=== PATIENT | male | born 1980 | race Caucasian/White ===

== ENCOUNTER 2020-01-30 09:13 | Emergency (ER) | payer SELFPAY ==
--- NOTE | 2020-01-30 09:30 | EDM.PDOC ---
ED HPI GENERAL MEDICAL PROBLEM - General Chief Complaint: Lower Extremity Injury/Pain Stated Complaint: ANKLE INJURY Time Seen by Provider: 01/30/20 09:20 Source of Information: Reports: Patient History Limitations: Reports: No Limitations - History of Present Illness INITIAL COMMENTS - FREE TEXT/NARRATIVE: 39-year-old male states injured his right knee after getting out of the metal loader patient has pain in the medial aspect of his knee and unable to bear weight at this time Onset: Today Location: Reports: Lower Extremity, Right Quality: Reports: Ache Severity: Moderate Improves with: Reports: None Worsens with: Reports: None Associated Symptoms: Reports: No Other Symptoms Right Knee Pain Score (Numeric/FACES): 8 - Related Data Allergies Allergy/AdvReac Type Severity Reaction Status Date / Time hydrocodone [From Vicodin] Allergy Itching Verified 01/30/20 09:25 oxycodone [From Percocet] Allergy Rash Verified 01/30/20 09:25 Home Meds: Home Meds Ibuprofen [Motrin] 600 mg PO Q6H PRN #21 tab 01/30/20 [Rx] Review of Systems - Review of Systems Review Of Systems: See Below Constitutional: Reports: No Symptoms Eyes: Reports: No Symptoms Ears: Reports: No Symptoms Nose: Reports: No Symptoms Mouth/Throat: Reports: No Symptoms Respiratory: Reports: No Symptoms Cardiovascular: Reports: No Symptoms GI/Abdominal: Reports: No Symptoms Genitourinary: Reports: No Symptoms Musculoskeletal: Reports: No Symptoms, Other (Has swelling to the right knee and pain) Skin: Reports: No Symptoms Neurological: Reports: No Symptoms Psychiatric: Reports: No Symptoms ED EXAM, GENERAL - Physical Exam Exam: See Below Exam Limited By: Altered Mental Status General Appearance: Alert, WD/WN, Mild Distress Nose: Normal Inspection, Normal Mucosa, No Blood Throat/Mouth: Normal Inspection, Normal Lips, Normal Teeth Head: Atraumatic, Normocephalic Neck: Normal Inspection, Supple, Non-Tender Respiratory/Chest: No Respiratory Distress Cardiovascular: Normal Peripheral Pulses (Male) Exam: Deferred Rectal (Males) Exam: Deferred Extremities: Normal Inspection, Limited Range of Motion, Other (The right knee on palpation decreased range of motion secondary to pain in the medial aspect. Unable to flex leg.). No: Normal Range of Motion Neurological: Alert, Oriented, CN II-XII Intact Psychiatric: Normal Affect, Normal Mood Skin Exam: Warm Lymphatic: No Adenopathy Course - Vital Signs Text/Narrative:: RI suggest possible subtotal tear of the meniscus. Will be discharged to follow -up with orthopedics with crutches and knee immobilizer. Take anti- inflammatories for pain Last Recorded V/S: Last Vital Signs Temp 97.6 F 01/30/20 09:19 Pulse 78 01/30/20 10:35 Resp 18 01/30/20 09:19 BP 103/60 01/30/20 10:35 Pulse Ox 95 01/30/20 10:35 - Orders/Labs/Meds Orders: Active Orders 24 hr Category Date Time Status DME for Discharge [COMM] Stat Oth 01/30/20 11:10 Ordered Departure - Departure Time of Disposition: 11:13 Disposition: Home, Self-Care 01 Condition: Good Clinical Impression: Meniscal injury Qualifiers: Encounter type: initial encounter Laterality: right Qualified Code(s): S83.8X1A - Sprain of other specified parts of right knee, initial encounter - Discharge Information Instructions: Crutch Use, Adult, [id number], Knee Sprain, Adult, [id number] , How to Use a Knee Immobilizer, [id number] Referrals: PCP,None [Primary Care Provider] - Forms: ED Department Discharge Additional Instructions: 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
--- NOTE | 2020-01-30 10:57 | MR ---
MRI right knee Technique: Proton fat suppressed axial; T1, proton and proton fat suppressed sagittal; proton and proton fat suppressed coronal images were obtained of the right knee. Comparison: No prior right knee imaging is available. Findings: Patellofemoral cartilage appears fairly well preserved. No joint effusion is seen. No popliteal cyst is identified. Increased signal is seen within the mid as well as posterior and anterior horns of the lateral meniscus. This appears to remain mostly intrameniscal, but this meniscus is abnormal enough to obscure subtle meniscus tear. Medial meniscus appears normal. Anterior and posterior cruciate ligaments are normal. Distal quadriceps tendon and patellar ligament appear normal. Soft tissue edema is noted anteriorly to the patella and patellar ligament. Lateral collateral and medial collateral ligaments are intact. Impression: 1. Diffusely abnormal lateral meniscus most likely degenerative in etiology. This meniscus is abnormal enough to obscure a subtle meniscal tear. 2. Subcutaneous edema anteriorly. 3. No additional abnormality is appreciated on MRI study of the right knee. Diagnostic code #3 This report was dictated in MDT
== END 2020-01-30 11:35 | disposition home or self-care (01) ==
LOC: MW.ED 09:13
DX: S83.8X1A Sprain of other specified parts of right knee, initial encounter (principal); Z79.899 Other long term (current) drug therapy; Z88.5 Allergy status to narcotic agent; X50.0XXA Overexertion from strenuous movement or load, initial encounter
CPT/HCPCS: 73721-26-RT; 73721-RT; 99282; 99283-25

== ENCOUNTER 2020-03-27 09:18 | Day surgery (SDC) | payer BC ==
[~2020-03-27 09:18] MED LIST: Lactated Ringers 1,000 ML IV SCH; Propofol 200 MG/20 ML SDV ONE; ceFAZolin 2 GM in Premix Bag 1 BAG IV SCH
[2020-03-27] MEDS ORDERED: fentaNYL 100 MCG/2 ML SDV ONE ×2 (09:19→11:40)
[2020-03-27] MEDS ORDERED: Midazolam 1 MG/ML 2 ML SDV ONE ×2 (09:19→10:04)
[2020-03-27] MEDS ORDERED: Lidocaine 2% 5 ML SDV ONE (09:20)
[2020-03-27] MEDS ORDERED: Glycopyrrolate 0.2 MG/ML SDV ONE (09:20)
[2020-03-27] MEDS ORDERED: Ketorolac 30 MG/ML SDV ONE (09:20)
[2020-03-27] MEDS ORDERED: Ondansetron 4 MG/2 ML SDV ONE (09:20)
[2020-03-27] MEDS ORDERED: Sodium Chloride 0.9% 20 ML ONE (10:02)
[2020-03-27] MEDS ORDERED: ceFAZolin 1 GM Vial ONE (10:02)
--- NOTE | 2020-03-27 10:07 | PCM.PREANE ---
Preanesthetic Assessment - Anesthesia/Transfusion/Family Hx Anesthesia History: Prior Anesthesia Without Reaction Family History of Anesthesia Reaction: No Transfusion History: No Prior Transfusion(s) Intubation History: Unknown - Review of Systems General: No Symptoms Pulmonary: No Symptoms Cardiovascular: No Symptoms Gastrointestinal: No Symptoms Neurological: No Symptoms Other: Reports: None - Physical Assessment Vital Signs: Last Vital Signs Temp 36.5 C 03/27/20 09:59 Pulse 86 03/27/20 09:59 Resp 16 03/27/20 09:59 BP 100/62 03/27/20 09:59 Pulse Ox 96 03/27/20 09:59 Height: 6 ft 1 in Weight: 104.326 kg ASA Class: 2 Mental Status: Alert & Oriented x3 Airway Class: Mallampati = 2 Dentition: Reports: Normal Dentition, Tibbie(s) (x1 upper front), Bridge (fixed rt. lower) Thyro-Mental Finger Breadths: 3 Mouth Opening Finger Breadths: 2 (small mouth) ROM/Head Extension: Full Lungs: Clear to Auscultation, Normal Respiratory Effort Cardiovascular: Regular Rate, Regular Rhythm - Allergies Allergies/Adverse Reactions: Allergies Allergy/AdvReac Type Severity Reaction Status Date / Time hydrocodone [From Vicodin] Allergy Itching Verified 03/27/20 09:56 oxycodone [From Percocet] Allergy Rash Verified 03/27/20 09:56 - Blood Blood Available: No - Anesthesia Plan Pre-Op Medication Ordered: None - Acknowledgements Anesthesia Type Planned: General Anesthesia Pt an Appropriate Candidate for the Planned Anesthesia: Yes Alternatives and Risks of Anesthesia Discussed w Pt/Guardian: Yes Pt/Guardian Understands and Agrees with Anesthesia Plan: Yes PreAnesthesia Questionnaire HEENT History: Reports: Other (See Below) Other HEENT History: impaired hearing R ear Cardiovascular History: Reports: None Respiratory History: Reports: None Gastrointestinal History: Reports: Hiatal Hernia Genitourinary History: Reports: Renal Calculus Musculoskeletal History: Reports: Back Pain, Chronic, Fracture, Other (See Below) (lateral meniscus tear rt. knee at present) Other Musculoskeletal History: R leg, L ankle. R wrist, bilateral ribs Neurological History: Reports: Concussion Psychiatric History: Reports: PTSD Endocrine/Metabolic History: Reports: Obesity/BMI 30+ (BMI 30.3) Hematologic History: Reports: None Immunologic History: Reports: None Oncologic (Cancer) History: Reports: None Dermatologic History: Reports: None - Infectious Disease History Infectious Disease History: Reports: Chicken Pox - Past Surgical History Head Surgeries/Procedures: Reports: None HEENT Surgical History: Reports: None Cardiovascular Surgical History: Reports: None Respiratory Surgical History: Reports: None GI Surgical History: Reports: Hernia, Abdominal, Christa Fundoplication Other GI Surgeries/Procedures: hx of umbilical hernia repair & hiatal hernia repair Male Surgical History: Reports: Vasectomy Endocrine Surgical History: Reports: None Neurological Surgical History: Reports: None Musculoskeletal Surgical History: Reports: None Oncologic Surgical History: Reports: None Dermatological Surgical History: Reports: Other (See Below) - SUBSTANCE USE Smoking Status *Q: Light Tobacco Smoker (occasional smoker) Tobacco Use Within Last Twelve Months: No Days Per Week of Alcohol Use: 7 Number of Drinks Per Day: 3 Total Drinks Per Week: 21 - HOME MEDS Home Medications: Home Meds Ibuprofen [Motrin] 600 mg PO Q6H PRN #21 tab 01/30/20 [Rx] - CURRENT (IN HOUSE) MEDS Current Meds: Current Medications Lactated Ringer's (Ringers, Lactated) 1,000 mls @ 100 mls/hr IV ASDIRECTED [facility] Last Admin: 03/27/20 09:55 Dose: 100 mls/hr Documented by: Cefazolin Sodium/Dextrose 2 gm (/ Premix) 50 mls @ 100 mls/hr IV ONCALL [facility] Discontinued Medications Fentanyl (Sublimaze) Confirm Administered Dose 100 mcg .ROUTE .STK-MED ONE Stop: 03/27/20 09:20 Glycopyrrolate (Robinul) Confirm Administered Dose 0.2 mg .ROUTE .STK-MED ONE Stop: 03/27/20 09:21 Ketorolac Tromethamine (Toradol) Confirm Administered Dose 30 mg .ROUTE .STK-MED ONE Stop: 03/27/20 09:21 Lidocaine (Xylocaine-Mpf 2%) Confirm Administered Dose 5 ml .ROUTE .STK-MED ONE Stop: 03/27/20 09:21 Midazolam HCl (Versed 1 Mg/Ml) Confirm Administered Dose 2 mg .ROUTE .STK-MED ONE Stop: 03/27/20 09:20 Ondansetron HCl (Zofran) Confirm Administered Dose 4 mg .ROUTE .STK-MED ONE Stop: 06/24/20 09:21 Propofol (Diprivan 20 Ml) Confirm Administered Dose 200 mg .ROUTE .[facility] ONE Stop: 03/27/20 09:19
[2020-03-27] MEDS ORDERED: fentaNYL 100 MCG/2 ML SDV IVPUSH PRN (10:21)
[2020-03-27] MEDS ORDERED: Acetaminophen 1,000 MG in Premix Bag 1 BAG IV PRN (10:21)
[2020-03-27] MEDS ORDERED: Bupivacaine 0.5%/EPINEPHrine 1:200,000 10 ML SDV ONE (11:31)
--- NOTE | 2020-03-27 12:10 | PCM.OPNOTE ---
- General Post-Op/Procedure Note Date of Surgery/Procedure: 03/27/20 Operative Procedure(s): right lateral and medial partial menisectomy Pre Op Diagnosis: right lateral meniscus tear Post-Op Diagnosis: right medial and lateral meniscus tear Primary Surgeon: Venkat VANN in mLs: 5 Complications: None Condition: Good
--- NOTE | 2020-03-27 12:34 | PCM.POSTAN ---
POST ANESTHESIA ASSESSMENT - MENTAL STATUS Mental Status: Alert, Oriented - VITAL SIGNS Vital Signs: Last Vital Signs Temp 36.1 C 03/27/20 12:08 Pulse 68 03/27/20 12:28 Resp 12 03/27/20 12:28 BP 129/89 03/27/20 12:28 Pulse Ox 100 03/27/20 12:28 - RESPIRATORY Respiratory Status: Respiratory Rate WNL, Airway Patent, O2 Saturation Stable - CARDIOVASCULAR CV Status: Pulse Rate WNL, Blood Pressure Stable - GASTROINTESTINAL GI Status: No Symptoms - PAIN Pain Score: 0 - POST OP HYDRATION Hydration Status: Adequate & Stable - OBSERVATIONS Free Text/Narrative:: No anesthesia problems
--- NOTE | 2020-03-27 12:52 | PCM48HPAN ---
Post Anesthesia Note - EVALUATION WITHIN 48HRS OF ANESTHETIC Vital Signs in Normal Range: Yes Patient Participated in Evaluation: Yes Respiratory Function Stable: Yes Airway Patent: Yes Cardiovascular Function Stable: Yes Hydration Status Stable: Yes Pain Control Satisfactory: Yes Nausea and Vomiting Control Satisfactory: Yes Mental Status Recovered: Yes Vital Signs: Last Vital Signs Temp 36.1 C 03/27/20 12:08 Pulse 68 03/27/20 12:28 Resp 12 03/27/20 12:28 BP 129/89 03/27/20 12:28 Pulse Ox 100 03/27/20 12:28 - COMMENTS/OBSERVATIONS Free Text/Narrative:: no anesthesia problems
--- NOTE | 2020-03-27 16:25 | OR ---
SURGEON: Venkat Morgan DATE OF PROCEDURE: 03/27/2020 PREOPERATIVE DIAGNOSIS: Right knee lateral meniscus tear. POSTOPERATIVE DIAGNOSIS: Right knee lateral and medial meniscus tear. PROCEDURE: Right knee arthroscopy with partial medial and lateral meniscectomy. PRIMARY SURGEON: Venkat Morgan DO ANESTHESIA: General endotracheal intubation. FLUID: Lactated Ringer's solution. ESTIMATED BLOOD LOSS: 5 mL. COMPLICATIONS: None. SPECIMEN: None. DISCHARGE DISPOSITION: Stable to PACU. HISTORY AND INDICATIONS FOR THE PROCEDURE: The patient was seen preoperatively in the clinic. He was treated nonoperatively with steroid injection, which did not help. Preoperative imaging confirmed the above-mentioned preoperative diagnosis. Risks and goals of the procedure were explained to the patient. Informed consent was obtained. DETAILS OF PROCEDURE: The patient was seen preoperatively by myself and the Anesthesia staff in the preoperative holding area where the operative site was marked. He was brought to the operative suite by Anesthesia staff where general anesthesia was administered. The left lower extremity was placed into a leg muse. The right lower extremity was placed into an arthroscopic knee muse. After placing a well-padded tourniquet, the right lower extremity was then prepped and draped in a sterile manner. Time-out was called identifying the correct patient, the correct procedure, the correct site, and that antibiotics had been given within appropriate period of time. The patient's right lower extremity was exsanguinated, tourniquet was raised to 250 mmHg. Under flexion, we then made our medial portal and then advanced with a trocar and camera. We inspected the suprapatellar pouch and patellofemoral compartment, which showed no evidence of arthritic changes. No plicae were seen in the medial or lateral gutters. The lateral compartment did show a posterior lateral meniscus tear. We did use the shaver and ablation unit to debride this, performing a partial lateral meniscectomy and then stabilized it with the ablation unit. I used the shaver to remove soft tissue medially and laterally for visualization. In the anterior medial portion of the medial meniscus was a small tear. This was again shaved and then stabilized with the ablation unit. The ACL was in good repair. There was no evidence of cartilage damage. We then, having accomplished our goals, removed our instruments from the knee. We then applied local anesthetic both subcutaneously and intra-articularly. We then closed with 3-0 nylon in horizontal mattress [id number] sutures followed by Betadine-soaked Adaptic, fluffs, and an Jed wrap. The tourniquet was let down after closure. The patient was then taken to his hospital bed and then taken to the PACU in stable condition. [id number] / MODL /[id number]
== END 2020-03-27 13:15 | disposition home or self-care (01) ==
LOC: MW.SDS 09:18
PROVIDERS: ATTEND Orthopaedic Surgery
DX: S83.281A Other tear of lateral meniscus, current injury, right knee, initial encounter (principal); S83.241A Other tear of medial meniscus, current injury, right knee, initial encounter; E66.9 Obesity, unspecified; F17.210 Nicotine dependence, cigarettes, uncomplicated; Z68.30 Body mass index [BMI] 30.0-30.9, adult; Z88.5 Allergy status to narcotic agent; Z88.8 Allergy status to other drugs, medicaments and biological substances; X58.XXXA Exposure to other specified factors, initial encounter
CPT/HCPCS: 29880; J0131; J0690; J1885; J2001; J2250; J2405; J2704; J3010; J3490; J7120

== ENCOUNTER 2020-09-09 16:40 | Emergency (ER) | payer BC ==
[2020-09-09] MEDS ORDERED: Aspirin 81 MG Tab.Chew PO ONE (16:42)
[2020-09-09] MEDS ORDERED: Sodium Chloride 0.9% 10 ML Syringe FLUSH PRN (16:42)
[2020-09-09] MEDS ORDERED: Sodium Chloride 0.9% 2.5 ML Syringe FLUSH PRN (16:42)
--- NOTE | 2020-09-09 16:49 | EDM.PDOC ---
ED HPI GENERAL MEDICAL PROBLEM - General Chief Complaint: Chest Pain Stated Complaint: CHEST PAIN Time Seen by Provider: 09/09/20 16:42 Source of Information: Reports: Patient History Limitations: Reports: No Limitations - History of Present Illness INITIAL COMMENTS - FREE TEXT/NARRATIVE: HISTORY AND PHYSICAL: History of present illness: Patient is a 40-year-old male who presents to the emergency room with complaints of left anterior chest pain that radiates into his left arm. Pain started approximately 1 hour prior to arrival. He states that he did feel "like I could pass out" but resolved without any syncopal event. He states nothing makes the pain better or worse. Patient denies any fever, chills, headache, change in vision, syncope or near syncope. Denies any back pain, shortness of breath or cough. Denies any neck pain or stiffness. Denies any abdominal pain, nausea, vomiting, diarrhea, constipation or dysuria. Has not noted any blood in urine or stool. Patient has been eating and drinking appropriately. No personal or family history of heart disease. He is a daily smoker over the past 20 years. Review of systems: As per history of present illness and below otherwise all systems reviewed and negative. Past medical history: As per history of present illness and as reviewed below otherwise noncontributory. Surgical history: As per history of present illness and as reviewed below otherwise noncontributory. Social history: See social history for further information Family history: As per history of present illness and as reviewed below otherwise noncontributory. Physical exam: General: Well developed and well nourished 40 year old male. Alert and orientated x 3. Nontoxic in appearance and in no acute distress. Vital signs are stable and have been reviewed by me. Nursing notes were reviewed. HEENT: Atraumatic, normocephalic, pupils equal and reactive bilaterally, negative for conjunctival pallor or scleral icterus, mucous membranes moist, trachea midline. No drooling or trismus noted. No meningeal signs. No hot potato voice noted. Lungs: Clear to auscultation, breath sounds equal bilaterally, chest nontender. Normal work of breathing, no accessory muscles used. Heart: S1S2, regular rate and rhythm without overt murmur Abdomen: Soft, nondistended, nontender. Negative for masses or hepatosplenomegaly. Negative for costovertebral tenderness. Skin: Intact, warm, dry. No lesions or rashes noted. Hematologic: No petechiae or purpra. Mucosa appropriate color and normal nail bed color and refill. Extremities: Atraumatic, moves all extremities per self without difficulty or deficits, negative for cords or calf pain. No LE edema noted. Strong distal pulses bilaterally, equal. Neurovascular unremarkable. Neuro: Awake, alert, oriented. Cranial nerves II through XII unremarkable. Cerebellum unremarkable. Motor and sensory unremarkable throughout. Exam nonfocal. Psychiatric: Mood and affect are appropriate. Normal thought process. Answering questions appropriately. Notes: Heart Score: Low. He is agreeable to labs and diagnostics. Will give aspirin and morphine. Initial troponin is unremarkable. Negative COVID-19 screening. Chest x-ray shows hyperinflation and increased interstitial markings which may represent mild pulmonary edema. No dense consolidation is appreciated. The patient's pain starting just an hour prior to arrival I will do a repeat troponin, patient was made aware and he is agreeable. He states "I would like to get home" and does feel somewhat improved. I have talked with the patient about today's findings, in addition to providing specific details for plan of care. Patient states he is pain-free and would like to be discharged to home. Reassessment at the time of disposition demons trates that the patient is in no acute distress. The patient is stable for discharge, counseling was provided and we discussed in great detail signs and symptoms that would prompt them to return to the Emergency Department. Medication, follow up and supportive care measures were reviewed and discussed. Voices understanding and is agreeable to plan of care. Denies any further questions or concerns at this time. Diagnostics: CBC, CMP, Troponin, EKG, CXR, COVID Therapeutics: Aspirin, Morphine 4mg Prescription: None Impression: Chest pain, unspecified Plan: 1. Today your HEART score was low and cardiac enzymes were within normal limits. You choose to not be admitted today, should your chest pain return, worsen, or new symptoms develop - PLEASE return to the ED for re-evaluation, we are always happy to see you. 2. Tylenol and/or Ibuprofen as needed for pain. 3. We encourage you to follow up with your primary care provider and/or head shipper for re-evaluation and further care/management. If your symptoms should worsen, new symptoms develop or any of the signs and symptoms we discussed should arise please return to the emergency room or call 911 (if needed). Definitive disposition and diagnosis as appropriate pending reevaluation and review of above. Chest Pain Score (Numeric/FACES): 4 - Related Data Allergies Allergy/AdvReac Type Severity Reaction Status Date / Time hydrocodone [From Vicodin] Allergy Itching Verified 09/09/20 16:47 oxycodone [From Percocet] Allergy Rash Verified 09/09/20 16:47 Home Meds: Home Meds Ibuprofen [Motrin] 600 mg PO Q6H PRN #21 tab 01/30/20 [Rx] Acetaminophen with Codeine [Tylenol with Codeine #3 Tablet] 1 each PO Q8H PRN #21 tablet 03/27/20 [Rx] Past Medical History HEENT History: Reports: Other (See Below) Other HEENT History: impaired hearing R ear Cardiovascular History: Reports: None Respiratory History: Reports: None Gastrointestinal History: Reports: Hiatal Hernia Genitourinary History: Reports: Renal Calculus Musculoskeletal History: Reports: Back Pain, Chronic, Fracture, Other (See Below) (lateral meniscus tear rt. knee at present) Other Musculoskeletal History: R leg, L ankle. R wrist, bilateral ribs Neurological History: Reports: Concussion Psychiatric History: Reports: PTSD Endocrine/Metabolic History: Reports: Obesity/BMI 30+ (BMI 30.3) Hematologic History: Reports: None Immunologic History: Reports: None Oncologic (Cancer) History: Reports: None Dermatologic History: Reports: None - Infectious Disease History Infectious Disease History: Reports: Chicken Pox - Past Surgical History Head Surgeries/Procedures: Reports: None HEENT Surgical History: Reports: None Cardiovascular Surgical History: Reports: None Respiratory Surgical History: Reports: None GI Surgical History: Reports: Hernia, Abdominal, Christa Fundoplication Other GI Surgeries/Procedures: hx of umbilical hernia repair & hiatal hernia repair Male Surgical History: Reports: Vasectomy Endocrine Surgical History: Reports: None Neurological Surgical History: Reports: None Musculoskeletal Surgical History: Reports: None Oncologic Surgical History: Reports: None Dermatological Surgical History: Reports: Other (See Below) ED ROS GENERAL - Review of Systems Review Of Systems: Comprehensive ROS is negative, except as noted in HPI. ED EXAM, GENERAL - Physical Exam Exam: See Below (See dictation) Course - Vital Signs Last Recorded V/S: Last Vital Signs Temp 96.6 F L 09/09/20 16:43 Pulse 83 09/09/20 18:39 Resp 15 09/09/20 16:43 BP 113/77 09/09/20 18:39 Pulse Ox 94 L 09/09/20 18:39 - Orders/Labs/Meds Orders: Active Orders 24 hr Category Date Time Status EKG Documentation Completion [RC] STAT Care 09/09/20 16:42 Active Sodium Chloride 0.9% [Saline Flush] Med 09/09/20 16:42 Active 10 ml FLUSH ASDIRECTED PRN Sodium Chloride 0.9% [Saline Flush] Med 09/09/20 16:42 Active 2.5 ml FLUSH ASDIRECTED PRN Saline Lock Insert [OM.PC] Stat Oth 09/09/20 16:42 Ordered Medication Orders Sodium Chloride (Saline Flush) 10 ml FLUSH ASDIRECTED PRN PRN Reason: Keep Vein Open Last Admin: 09/09/20 17:03 Dose: 10 ml Documented by: CLAUDIA Sodium Chloride (Saline Flush) 2.5 ml FLUSH ASDIRECTED PRN PRN Reason: Keep Vein Open Last Admin: 09/09/20 17:03 Dose: 2.5 ml Documented by: CLAUDIA Labs: Laboratory Tests 09/09/20 09/09/20 09/09/20 Range/Units 16:44 16:44 17:50 WBC 11.32 H (4.0-11.0) K/uL RBC 5.22 (4.50-5.90) M/uL Hgb 15.8 (13.0-17.0) g/dL Hct 48.6 (38.0-50.0) % MCV 93.1 (80.0-98.0) fL MCH 30.3 (27.0-32.0) pg MCHC 32.5 (31.0-37.0) g/dL RDW Std Deviation 48.6 (28.0-62.0) fl RDW Coeff of Kalee 14 (11.0-15.0) % Plt Count 220 (150-400) K/uL MPV 10.90 (7.40-12.00) fL Neut % (Auto) 65.1 (48.0-80.0) % Lymph % (Auto) 24.5 (16.0-40.0) % [place] % (Auto) 8.6 (0.0-15.0) % Eos % (Auto) 1.6 (0.0-7.0) % Baso % (Auto) 0.2 (0.0-1.5) % Neut # (Auto) 7.4 H (1.4-5.7) K/uL Lymph # (Auto) 2.8 H (0.6-2.4) K/uL [place] # (Auto) 1.0 H (0.0-0.8) K/uL Eos # (Auto) 0.2 (0.0-0.7) K/uL Baso # (Auto) 0.0 (0.0-0.1) K/uL Nucleated RBC % 0.0 /100WBC Nucleated RBCs # 0 K/uL Sodium 143 (136-148) mmol/L Potassium 3.6 (3.5-5.1) mmol/L Chloride 105 (98-107) mmol/L Carbon Dioxide 27.2 (21.0-32.0) mmol/L BUN 11 (7.0-18.0) mg/dL Creatinine 1.0 (0.8-1.3) mg/dL Est Cr Clr Drug Dosing 112.08 mL/min Estimated GFR (MDRD) > 60.0 ml/min Glucose 87 (74-106) mg/dL Calcium 8.4 L (8.5-10.1) mg/dL Total Bilirubin 0.5 (0.2-1.0) mg/dL AST 24 (15-37) IU/L ALT 50 (14-63) IU/L Alkaline Phosphatase 84 (46-116) U/L Troponin I < 0.050 (0.000-0.056) ng/mL Total Protein 6.9 (6.4-8.2) g/dL Albumin 3.4 (3.4-5.0) g/dL Globulin 3.5 (2.6-4.0) g/dL Albumin/Globulin Ratio 1.0 (0.9-1.6) SARS-CoV-2 RNA (NORM) NEGATIVE (NEGATIVE) 09/09/20 Range/Units 19:20 WBC (4.0-11.0) K/uL RBC (4.50-5.90) M/uL Hgb (13.0-17.0) g/dL Hct (38.0-50.0) % MCV (80.0-98.0) fL MCH (27.0-32.0) pg MCHC (31.0-37.0) g/dL RDW Std Deviation (28.0-62.0) fl RDW Coeff of Kalee (11.0-15.0) % Plt Count (150-400) K/uL MPV (7.40-12.00) fL Neut % (Auto) (48.0-80.0) % Lymph % (Auto) (16.0-40.0) % [place] % (Auto) (0.0-15.0) % Eos % (Auto) (0.0-7.0) % Baso % (Auto) (0.0-1.5) % Neut # (Auto) (1.4-5.7) K/uL Lymph # (Auto) (0.6-2.4) K/uL [place] # (Auto) (0.0-0.8) K/uL Eos # (Auto) (0.0-0.7) K/uL Baso # (Auto) (0.0-0.1) K/uL Nucleated RBC % /100WBC Nucleated RBCs # K/uL Sodium (136-148) mmol/L Potassium (3.5-5.1) mmol/L Chloride (98-107) mmol/L Carbon Dioxide (21.0-32.0) mmol/L BUN (7.0-18.0) mg/dL Creatinine (0.8-1.3) mg/dL Est Cr Clr Drug Dosing mL/min Estimated GFR (MDRD) ml/min Glucose (74-106) mg/dL Calcium (8.5-10.1) mg/dL Total Bilirubin (0.2-1.0) mg/dL AST (15-37) IU/L ALT (14-63) IU/L Alkaline Phosphatase (46-116) U/L Troponin I < 0.050 (0.000-0.056) ng/mL Total Protein (6.4-8.2) g/dL Albumin (3.4-5.0) g/dL Globulin (2.6-4.0) g/dL Albumin/Globulin Ratio (0.9-1.6) SARS-CoV-2 RNA (NORM) (NEGATIVE) Meds: Medications Generic Name Dose Route Start Last Admin Trade Name Freq PRN Reason Stop Dose Admin Sodium Chloride 10 ml 09/09/20 16:42 09/09/20 17:03 Saline Flush FLUSH 10 ml ASDIRECTED PRN Administration Keep Vein Open Sodium Chloride 2.5 ml 09/09/20 16:42 09/09/20 17:03 Saline Flush FLUSH 2.5 ml ASDIRECTED PRN Administration Keep Vein Open Discontinued Medications Generic Name Dose Route Start Last Admin Trade Name Freq PRN Reason Stop Dose Admin Aspirin 324 mg 09/09/20 16:42 09/09/20 17:01 Aspirin PO 09/09/20 16:43 324 mg ONETIME ONE Administration Diphenhydramine HCl 25 mg 09/09/20 16:50 09/09/20 17:07 Benadryl IVPUSH 09/09/20 16:51 Not Given ONETIME ONE Morphine Sulfate 4 mg 09/09/20 16:50 09/09/20 17:00 Morphine IVPUSH 09/09/20 16:51 4 mg ONETIME ONE Administration Departure - Departure Time of Disposition: 19:34 Disposition: Home, Self-Care 01 Clinical Impression: Chest pain, unspecified Qualifiers: Chest pain type: unspecified Qualified Code(s): R07.9 - Chest pain, unspecified Instructions: Nonspecific Chest Pain, Adult, [id number] Referrals: PCP,None [Primary Care Provider] - Forms: ED Department Discharge Additional Instructions: The following information is given to patients seen in the emergency department who are being discharged to home. This information is to outline your options for follow-up care. We provide all patients seen in our emergency department with a follow-up referral. The need for follow-up, as well as the timing and circumstances, are variable depending upon the specifics of your emergency department visit. If you don't have a primary care physician on staff, we will provide you with a referral. We always advise you to contact your personal physician following an emergency department visit to inform them of the circumstance of the visit and for follow-up with them and/or the need for any referrals to a consulting spe cialist. The emergency department will also refer you to a specialist when appropriate. This referral assures that you have the opportunity for follow-up care with a specialist. All of these measure are taken in an effort to provide you with optimal care, which includes your follow-up. Under all circumstances we always encourage you to contact your private physician who remains a resource for coordinating your care. When calling for follow-up care, please make the office aware that this follow-up is from your recent emergency room visit. If for any reason you are refused follow-up, please contact the [facility] Emergency Department at and asked to speak to the emergency department charge nurse. [facility] [address] [place] [id number] [facility] [address] [place] [id number] Thank you for choosing the [facility] emergency department in [place] for your medical needs today. It was a pleasure caring for you. Today you were seen in the emergency department for chest pain. 1. Today your HEART score was low and cardiac enzymes were within normal limits. You choose to not be admitted today. Should your chest pain return, worsen, or new symptoms develop - PLEASE return to the ED for re-evaluation, we are always happy to see you. 2. Tylenol and/or Ibuprofen as needed for pain. 3. We encourage you to follow up with your primary care provider and/or head shipper for re-evaluation and further care/management. If your symptoms should worsen, new symptoms develop or any of the signs and symptoms we discussed should arise please return to the emergency room or call 911 (if needed). Sepsis Event Note (ED) - Focused Exam Vital Signs: Vital Signs Temp Pulse Resp BP Pulse Ox 09/09/20 18:39 83 113/77 94 L 09/09/20 18:09 87 130/78 96 09/09/20 17:39 93 116/80 93 L 09/09/20 17:09 102 H 124/81 94 L 09/09/20 16:43 96.6 F L 107 H 15 118/80 98 - My Orders Last 24 Hours: My Active Orders 09/09/20 16:42 EKG Documentation Completion [RC] STAT Sodium Chloride 0.9% [Saline Flush] 10 ml FLUSH ASDIRECTED PRN Sodium Chloride 0.9% [Saline Flush] 2.5 ml FLUSH ASDIRECTED PRN Saline Lock Insert [OM.PC] Stat - Assessment/Plan Last 24 Hours: My Active Orders 09/09/20 16:42 EKG Documentation Completion [RC] STAT Sodium Chloride 0.9% [Saline Flush] 10 ml FLUSH ASDIRECTED PRN Sodium Chloride 0.9% [Saline Flush] 2.5 ml FLUSH ASDIRECTED PRN Saline Lock Insert [OM.PC] Stat
[2020-09-09] MEDS ORDERED: Morphine 4 MG/ML Syringe IVPUSH ONE (16:50)
[2020-09-09] MEDS ORDERED: diphenhydrAMINE 50 MG/ML SDV IVPUSH ONE (16:50)
--- NOTE | 2020-09-09 16:55 | PCM.SN.2 ---
- Free Text/Narrative Note: Heart rate = 95 bpm, normal sinus rhythm, <[address] depression on V3 to V6, Normal QRS interval, no STEMI. EKG and rhythm strip interpreted by me at [id number]
--- NOTE | 2020-09-09 17:15 | CR ---
Indication: Chest pain Comparison: None available. Technique: Single AP view chest Findings: There is hyperinflation and increased interstitial markings. There is no focal consolidation, effusion, or pneumothorax. The cardiomediastinal silhouette is within normal limits. The bony thorax is grossly intact. Impression: Hyperinflation and increased interstitial markings which may represent mild pulmonary edema. No dense consolidation is appreciated. Dictated by Robel Trinidad MD @ Sep 09 2020 5:12PM Signed by Dr. Robel Trinidad @ Sep 09 2020 5:12PM
[2020-09-09 17:21] LABS: BLOOD UREA NITROGEN,BUN 11 mg/dL (7.0-18.0); CARBON DIOXIDE,CO2 27.2 mmol/L (21.0-32.0); CHLORIDE,CL 105 mmol/L (98-107); GLUCOSE RANDOM 87 mg/dL (74-106); POTASSIUM,K 3.6 mmol/L (3.5-5.1); SODIUM,NA 143 mmol/L (136-148)
== END 2020-09-09 19:50 | disposition home or self-care (01) ==
LOC: MW.ED 16:40
DX: R07.89 Other chest pain (principal); E66.9 Obesity, unspecified; Z68.32 Body mass index [BMI] 32.0-32.9, adult; Z88.5 Allergy status to narcotic agent; Z20.828 Contact with and (suspected) exposure to other viral communicable diseases
CPT/HCPCS: 36415; 71045; 80053; 84484; 85025; 87635; 93005; 96374; 99285; A9270; J2270; 93010; 99284; U0002

== ENCOUNTER 2020-09-14 18:31 | Emergency (ER) | payer BC ==
[2020-09-14] MEDS ORDERED: Ketorolac 30 MG/ML SDV IVPUSH ONE (18:59)
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
[2020-09-14 19:29] LABS: CARBON DIOXIDE,CO2 23.7 mmol/L (21.0-32.0)
[2020-09-14] MEDS ORDERED: Iopamidol 755 MG/ML 500 ML Multipack Bottle IVPUSH STA (20:03)
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
== END 2020-09-14 21:05 | disposition home or self-care (01) ==
LOC: MW.ED 18:31
DX: S89.91XA Unspecified injury of right lower leg, initial encounter (principal); R10.32 Left lower quadrant pain; R91.1 Solitary pulmonary nodule; Z88.5 Allergy status to narcotic agent; N20.0 Calculus of kidney; W01.0XXA Fall on same level from slipping, tripping and stumbling without subsequent striking against object, initial encounter
CPT/HCPCS: 36415; 73562; 74177; 80053; 81003; 85025; 96374; 99284; J1885; Q9967

== ENCOUNTER 2020-11-15 20:15 | Emergency (ER) | payer SELFPAY ==
--- NOTE | 2020-11-16 15:30 | EDM.PDOC ---
ED HPI GENERAL MEDICAL PROBLEM - General Chief Complaint: Laceration Stated Complaint: CUT ON RT HAND Time Seen by Provider: 11/15/20 21:07 Source of Information: Reports: Patient History Limitations: Reports: No Limitations - History of Present Illness INITIAL COMMENTS - FREE TEXT/NARRATIVE: HISTORY AND PHYSICAL: History of present illness: 40-year-old male presents to the ED with laceration to right hand. Patient states that he cut his hand opening a box 2 hours before presenting to ED. patient reports he is up-to-date on tetanus immunization. States he has been able to use his hand without deficit. Patient denies fever, chills, chest pain, shortness of breath, or cough. Denies headache, neck stiff ness, change in vision, syncope, or near syncope. Denies nausea, vomiting, abdominal pain, diarrhea, constipation, or dysuria. Has not noted any blood in urine or stool. Patient has been eating and drinking appropriately. Review of systems: As per history of present illness and below otherwise all systems reviewed and negative. Past medical history: As per history of present illness and as reviewed below otherwise noncontributory. Surgical history: As per history of present illness and as reviewed below otherwise noncontributory. Social history: See social history for further information Family history: As per history of present illness and as reviewed below otherwise noncontributory. Physical exam: General: Patient is alert, oriented, and in no acute distress. Patient sitting comfortably on exam table. Vitals stable and reviewed by me. HEENT: Atraumatic, normocephalic, pupils equal and reactive bilaterally, negative for conjunctival pallor or scleral icterus, mucous membranes moist, TMs normal bilaterally, throat clear, neck supple, nontender, trachea midline. No drooling or trismus noted. No meningeal signs. No hot potato voice noted. Lungs: Clear to auscultation, breath sounds equal bilaterally, chest nontender. Heart: S1S2, regular rate and rhythm without overt murmur Abdomen: Soft, nondistended, nontender. Negative for masses or hepatosplenomegaly. Negative for costovertebral tenderness. Pelvis: Stable nontender. Genitourinary: Deferred. Rectal: Deferred. Skin: Intact, warm, dry. No lesions or rashes noted. Extremities: There is a 1 cm gaping laceration of the dorsum right hand webspace at the base of the 1st and 2nd digits without bleeding. Full range of motion of all digits of the right upper extremity without deficit. Radial pulses grossly intact of the right upper extremity with capillary refill less than 2 seconds. Otherwise, atraumatic, negative for cords or calf pain. Neurovascular unremarkable. Neuro: Awake, alert, oriented. Cranial nerves II through XII unremarkable. Cerebellum unremarkable. Motor and sensory unremarkable throughout. Exam nonfocal. Notes: PA student, Nargis Campuzano, performed patients sutures. However, due to the critical necessity requiring me to be at bedside for another patient in the ED in a critical state, I did not get the opportunity to reevaluate/assess/ or approve of the laceration repair prior to patient who eloped. Diagnostics: None Therapeutics: Sutures, Lidocaine Prescription: Patient eloped the ED prior to discharge Impression: Right hand laceration Eloped the ED Plan: Patient eloped the ED prior to discharge Definitive disposition and diagnosis as appropriate pending reevaluation and review of above. - Related Data Allergies Allergy/AdvReac Type Severity Reaction Status Date / Time hydrocodone [From Vicodin] Allergy Itching Verified 11/15/20 21:02 oxycodone [From Percocet] Allergy Rash Verified 11/15/20 21:02 Home Meds: Home Meds . [No Known Home Meds] 11/15/20 [History] Past Medical History - Past Health History Medical/Surgical History: Denies Medical/Surgical History HEENT History: Reports: Other (See Below) Other HEENT History: impaired hearing R ear Cardiovascular History: Reports: None Respiratory History: Reports: None Gastrointestinal History: Reports: Hiatal Hernia Genitourinary History: Reports: Renal Calculus Musculoskeletal History: Reports: Back Pain, Chronic, Fracture, Other (See Below) Other Musculoskeletal History: R leg, L ankle. R wrist, bilateral ribs Neurological History: Reports: Concussion Psychiatric History: Reports: PTSD Endocrine/Metabolic History: Reports: Obesity/BMI 30+ Hematologic History: Reports: None Immunologic History: Reports: None Oncologic (Cancer) History: Reports: None Dermatologic History: Reports: None - Infectious Disease History Infectious Disease History: Reports: Chicken Pox - Past Surgical History Head Surgeries/Procedures: Reports: None HEENT Surgical History: Reports: None Cardiovascular Surgical History: Reports: None Respiratory Surgical History: Reports: None GI Surgical History: Reports: Hernia, Abdominal, Christa Fundoplication Other GI Surgeries/Procedures: hx of umbilical hernia repair & hiatal hernia repair Male Surgical History: Reports: Vasectomy Endocrine Surgical History: Reports: None Neurological Surgical History: Reports: None Musculoskeletal Surgical History: Reports: None Oncologic Surgical History: Reports: None Dermatological Surgical History: Reports: Other (See Below) Social & Family History - Family History Family Medical History: No Pertinent Family History - Tobacco Use Years of Tobacco use: 25 Packs/Tins Daily: 1 - Caffeine Use Caffeine Use: Reports: Energy Drinks - Recreational Drug Use Recreational Drug Use: No ED ROS GENERAL - Review of Systems Review Of Systems: Comprehensive ROS is negative, except as noted in HPI. ED EXAM, SKIN/RASH Exam: See Below (see dictation) ED SKIN PROCEDURES - Laceration/Wound Repair Right Hand Appearance: Subcutaneous, Linear, Clean Distal NVT: Neuro & Vascular Intact, No Tendon Injury Anesthetic Type: Local Local Anesthesia - Lidocaine (Xylocaine): 1% Plain Local Anesthetic Volume: 3cc Skin Prep: Chlorhexidine (Hibiciens) Saline Irrigation (cc's): 300 Exploration/Debridement/Repair: Wound Explored, In a Bloodless Field, Explored to Base, No Foreign Material Found Closed with: Sutures Lac/Wound length In cm: 1 Suture Size: 4-0 # of Sutures: 3 Suture Type: Silk, Interrupted Drain Placement: No Sterile Dressing Applied: Other (patient eloped) Tetanus Status Addressed: Yes (up to date) Complications: No Progress/Comments: Sutures were performed by PA student, Nargis Campuzano. Due to the critical nature of another patient in the emergency room at this time, I was unable to reassess, approve the suture laceration before patient eloped to the emergency room. Course - Vital Signs Last Recorded V/S: Last Vital Signs Temp 98.5 F 11/15/20 21:00 Pulse 98 11/15/20 21:00 Resp 18 11/15/20 21:00 BP 126/77 11/15/20 21:00 Pulse Ox 97 11/15/20 21:00 - Orders/Labs/Meds Meds: Medications Discontinued Medications Generic Name Dose Route Start Last Admin Trade Name Freq PRN Reason Stop Dose Admin Lidocaine HCl 5 ml 11/15/20 21:21 11/15/20 21:26 Xylocaine-Mpf 1% INJECT 11/15/20 21:22 5 ml ONETIME ONE Administration Departure - Departure Time of Disposition: 15:16 Disposition: Eloped 07 Clinical Impression: Hand laceration Qualifiers: Encounter type: initial encounter Foreign body presence: without foreign body Laterality: right Qualified Code(s): S61.411A - Laceration without foreign body of right hand, initial encounter - Discharge Information Referrals: Chris Lee MD [Primary Care Provider] - Forms: ED Department Discharge Additional Instructions: Patient eloped the ED prior to discharge Sepsis Event Note (ED) - Evaluation Sepsis Screening Result: No Definite Risk
== END 2020-11-15 21:56 | disposition left against medical advice (07) ==
LOC: MW.ED 20:15
DX: S61.411A Laceration without foreign body of right hand, initial encounter (principal); W27.4XXA Contact with kitchen utensil, initial encounter
CPT/HCPCS: 12001; 99282; 99282-25

== ENCOUNTER 2021-01-19 14:48 | Emergency (ER) | payer BC ==
[2021-01-19] MEDS ORDERED: Sodium Chloride 0.9% 2.5 ML Syringe FLUSH PRN (15:04)
[2021-01-19] MEDS ORDERED: Sodium Chloride 0.9% 10 ML Syringe FLUSH PRN (15:04)
--- NOTE | 2021-01-19 15:06 | EDM.PDOC ---
ED HPI GENERAL MEDICAL PROBLEM - General Chief Complaint: Chest Pain Stated Complaint: CHEST PAIN,NUMBNESS IN LEFT HAND Time Seen by Provider: 01/19/21 14:49 - History of Present Illness INITIAL COMMENTS - FREE TEXT/NARRATIVE: 40-year-old male was a smoker but without other known medical problems who is presenting with currently 6 out of 10 stabbing left anterior chest discomfort. The patient was moving things out of his current garage and lifting and putting stuff away when he had sudden and severe left-sided chest pain associated with left hand numbness. He had some dizziness with it no shortness of breath no nausea or vomiting. He felt well earlier in the day. No abdominal pain. He did have one episode early in the morning after getting up with nausea and nonbloody nonbilious emesis. He attributed it to something he ate last night of the alcohol that he had last night. He felt quite well following this and was doing well until the acute onset of the pain. The pain does not radiate to the neck or the back. There is no associated vertigo. There is no syncope. Patient is grandparents have a history of heart problems mother with history of heart problems at an elderly age but otherwise no known heart conditions in the family. Symptoms worsen with movement of the left arm. Left Chest Pain Score (Numeric/FACES): 6 - Related Data Allergies Allergy/AdvReac Type Severity Reaction Status Date / Time hydrocodone [From Vicodin] Allergy Itching Verified 01/19/21 14:57 oxycodone [From Percocet] Allergy Rash Verified 01/19/21 14:57 Home Meds: Home Meds . [No Known Home Meds] 11/15/20 [History] Past Medical History - Past Health History Medical/Surgical History: Denies Medical/Surgical History HEENT History: Reports: Other (See Below) Other HEENT History: impaired hearing R ear Cardiovascular History: Reports: None Respiratory History: Reports: None Gastrointestinal History: Reports: Hiatal Hernia Genitourinary History: Reports: Renal Calculus Musculoskeletal History: Reports: Back Pain, Chronic, Fracture, Other (See Below) Other Musculoskeletal History: R leg, L ankle. R wrist, bilateral ribs Neurological History: Reports: Concussion Psychiatric History: Reports: PTSD Endocrine/Metabolic History: Reports: Obesity/BMI 30+ Hematologic History: Reports: None Immunologic History: Reports: None Oncologic (Cancer) History: Reports: None Dermatologic History: Reports: None - Infectious Disease History Infectious Disease History: Reports: Chicken Pox - Past Surgical History Head Surgeries/Procedures: Reports: None HEENT Surgical History: Reports: None Cardiovascular Surgical History: Reports: None Respiratory Surgical History: Reports: None GI Surgical History: Reports: Hernia, Abdominal, Christa Fundoplication Other GI Surgeries/Procedures: hx of umbilical hernia repair & hiatal hernia repair Male Surgical History: Reports: Vasectomy Endocrine Surgical History: Reports: None Neurological Surgical History: Reports: None Musculoskeletal Surgical History: Reports: None Oncologic Surgical History: Reports: None Dermatological Surgical History: Reports: Other (See Below) Social & Family History - Family History Family Medical History: No Pertinent Family History - Tobacco Use Tobacco Use Status *Q: Current Every Day Tobacco User Years of Tobacco use: 20 Packs/Tins Daily: 0.5 - Caffeine Use Caffeine Use: Reports: None - Recreational Drug Use Recreational Drug Use: No ED ROS GENERAL - Review of Systems Review Of Systems: See Below Free Text/Narrative/Comment: General: No fever. Skin: No rash. Eyes: No vision problems. ENT: No sore throat. Neck: No neck stiffness. Respiratory: No shortness of breath. Cardiac: Per HPI Gastrointestinal: No nausea, vomiting or abdominal pain. Urinary: No dysuria. Musculoskeletal: No myalgias/arthralgias. Neurologic: No headache. ED EXAM, GENERAL - Physical Exam Exam: See Below Free Text/Narrative:: General Appearance: No acute distress, appears comfortable Skin: No rash HEENT: Normocephalic/atraumatic, sclera anicteric, mucous membranes moist Neck: Normal range of motion Chest and Lungs: Bilateral breath sounds, clear to auscultation, significant focal tenderness in the left pectoralis major with a 2 x 2 area of ecchymosis that the patient does not recognize as being old. Patient with worsening symptoms with bilateral straight arm raise. Profound worsening of symptoms with anterior arm curls and pectoralis major testing. Cardiovascular: Regular rate and rhythm, no murmur Abdomen: Soft, non-tender Back: Normal Musculoskeletal: No edema or tenderness Neurologic: Awake, alert, no obvious deficits, moving all extremities Psychiatric: Appropriate, cooperative #1 Interpretation EKG Date: 01/19/21 Time: 15:20 EKG Interpretation Comments: Normal sinus rhythm rate of 85 normal axis and intervals no acute ischemia normal EKG. Course - Vital Signs Last Recorded V/S: Last Vital Signs Temp 97.9 F 01/19/21 14:57 Pulse 92 01/19/21 14:57 Resp 16 01/19/21 14:57 BP 124/76 01/19/21 14:57 Pulse Ox 99 01/19/21 14:57 - Orders/Labs/Meds Orders: Active Orders 24 hr Category Date Time Status Sodium Chloride 0.9% [Saline Flush] Med 01/19/21 15:04 Active 10 ml FLUSH ASDIRECTED PRN Sodium Chloride 0.9% [Saline Flush] Med 01/19/21 15:04 Active 2.5 ml FLUSH ASDIRECTED PRN Saline Lock Insert [OM.PC] Stat Oth 01/19/21 15:04 Ordered Medication Orders Sodium Chloride (Sodium Chloride 0.9% 10 Ml Syringe) 10 ml FLUSH ASDIRECTED PRN PRN Reason: Keep Vein Open Last Admin: 01/19/21 15:12 Dose: 10 ml Documented by: EVERT Sodium Chloride (Sodium Chloride 0.9% 2.5 Ml Syringe) 2.5 ml FLUSH ASDIRECTED PRN PRN Reason: Keep Vein Open Last Admin: 01/19/21 15:12 Dose: 2.5 ml Documented by: EVERT Labs: Laboratory Tests 01/19/21 01/19/21 Range/Units 15:00 15:00 WBC 11.07 H (4.0-11.0) K/uL RBC 5.35 (4.50-5.90) M/uL Hgb 16.6 (13.0-17.0) g/dL Hct 50.6 H (38.0-50.0) % MCV 94.6 (80.0-98.0) fL MCH 31.0 (27.0-32.0) pg MCHC 32.8 (31.0-37.0) g/dL RDW Std Deviation 47.6 (28.0-62.0) fl RDW Coeff of Kalee 14 (11.0-15.0) % Plt Count 241 (150-400) K/uL MPV 11.30 (7.40-12.00) fL Neut % (Auto) 70.5 (48.0-80.0) % Lymph % (Auto) 21.7 (16.0-40.0) % Gulf % (Auto) 6.6 (0.0-15.0) % Eos % (Auto) 1.0 (0.0-7.0) % Baso % (Auto) 0.2 (0.0-1.5) % Neut # (Auto) 7.8 H (1.4-5.7) K/uL Lymph # (Auto) 2.4 (0.6-2.4) K/uL Gulf # (Auto) 0.7 (0.0-0.8) K/uL Eos # (Auto) 0.1 (0.0-0.7) K/uL Baso # (Auto) 0.0 (0.0-0.1) K/uL Nucleated RBC % 0.0 /100WBC Nucleated RBCs # 0 K/uL Sodium 139 (136-148) mmol/L Potassium 3.8 (3.5-5.1) mmol/L Chloride 104 (98-107) mmol/L Carbon Dioxide 25.5 (21.0-32.0) mmol/L BUN 10 (7.0-18.0) mg/dL Creatinine 1.1 (0.8-1.3) mg/dL Est Cr Clr Drug Dosing 101.89 mL/min Estimated GFR (MDRD) > 60.0 ml/min Glucose 94 (74-106) mg/dL Calcium 8.1 L (8.5-10.1) mg/dL Total Bilirubin 0.6 (0.2-1.0) mg/dL AST 23 (15-37) IU/L ALT 41 (14-63) IU/L Alkaline Phosphatase 106 (46-116) U/L Troponin I < 0.050 (0.000-0.056) ng/mL Total Protein 7.3 (6.4-8.2) g/dL Albumin 3.6 (3.4-5.0) g/dL Globulin 3.7 (2.6-4.0) g/dL Albumin/Globulin Ratio 1.0 (0.9-1.6) Meds: Medications Generic Name Dose Route Start Last Admin Trade Name Freq PRN Reason Stop Dose Admin Sodium Chloride 10 ml 01/19/21 15:04 01/19/21 15:12 Sodium Chloride 0.9% 10 Ml Syringe FLUSH 10 ml ASDIRECTED PRN Administration Keep Vein Open Sodium Chloride 2.5 ml 01/19/21 15:04 01/19/21 15:12 Sodium Chloride 0.9% 2.5 Ml Syringe FLUSH 2.5 ml ASDIRECTED PRN Administration Keep Vein Open Discontinued Medications Generic Name Dose Route Start Last Admin Trade Name Renq PRN Reason Stop Dose Admin Ketorolac Tromethamine 15 mg 01/19/21 15:43 01/19/21 15:48 Ketorolac 30 Mg/Ml Sdv IVPUSH 01/19/21 15:44 15 mg ONETIME ONE Administration Departure - Departure Time of Disposition: 16:07 Disposition: Home, Self-Care 01 Condition: Good Clinical Impression: Pectoralis muscle strain - Discharge Information *PRESCRIPTION DRUG MONITORING PROGRAM REVIEWED*: Not Applicable *COPY OF PRESCRIPTION DRUG MONITORING REPORT IN PATIENT [place]: Not Applicable Instructions: Muscle Strain Forms: ED Department Discharge Additional Instructions: For the next 4 days I recommend that you take 3 200 mg [id number] ibuprofen tablets every 8 hours with food. This will help with the pain and inflammation. You will likely experience worsening pain with any motions of your left arm that include raising it forward or carrying heavy objects or any other motion that causes your left pec to contract. Your symptoms should slowly improve over the next several days. However you may notice some increased bruising and swelling on your left pack over the next couple days. If you develop severe chest pain severe shortness of breath or any other new symptoms that concern you please call your doctor or return to the ER. The following information is given to patients seen in the emergency department who are being discharged to home. This information is to outline your options for follow-up care. We provide all patients seen in our emergency department with a follow-up referral. The need for follow-up, as well as the timing and circumstances, are variable depending upon the specifics of your emergency department visit. If you don't have a primary care physician on staff, we will provide you with a referral. We always advise you to contact your personal physician following an emergency department visit to inform them of the circumstance of the visit and for follow-up with them and/or the need for any referrals to a consulting specialist. The emergency department will also refer you to a specialist when appropriate. This referral assures that you have the opportunity for follow-up care with a specialist. All of these measure are taken in an effort to provide you with optimal care, which includes your follow-up. Under all circumstances we always encourage you to contact your private physician who remains a resource for coordinating your care. When calling for follow-up care, please make the office aware that this follow-up is from your recent emergency room visit. If for any reason you are refused follow-up, please contact the Emergency Department at and asked to speak to the emergency department charge nurse. Sepsis Event Note (ED) - Evaluation Sepsis Screening Result: No Definite Risk - Focused Exam Vital Signs: Vital Signs Temp Pulse Resp BP Pulse Ox 01/19/21 14:57 97.9 F 92 16 124/76 99 - My Orders Last 24 Hours: My Active Orders 01/19/21 15:04 Sodium Chloride 0.9% [Saline Flush] 10 ml FLUSH ASDIRECTED PRN Sodium Chloride 0.9% [Saline Flush] 2.5 ml FLUSH ASDIRECTED PRN Saline Lock Insert [OM.PC] Stat - Assessment/Plan Last 24 Hours: My Active Orders 01/19/21 15:04 Sodium Chloride 0.9% [Saline Flush] 10 ml FLUSH ASDIRECTED PRN Sodium Chloride 0.9% [Saline Flush] 2.5 ml FLUSH ASDIRECTED PRN Saline Lock Insert [OM.PC] Stat Assessment:: 40-year-old male presenting with history and exam findings most consistent with left pectoralis major strain. The significant localized tenderness the profound increase in symptoms with isolated pectoralis major testing all of this argue strongly for pec strain over ACS. There is no tachycardia or hypoxia no pleuritic component to the pain nothing with suggest PE. The pain is not radiating to the back and is not currently severe dissection is felt very unlikely. No cough or fever that would suggest pneumonia. Labs and chest x-ray been ordered. If these are unremarkable patient will be safe for discharge. Patient given Toradol for symptom control. 1600: Labs and chest x-ray are normal. Patient's symptoms improved with Toradol. Will do 600 of ibuprofen 3 times daily for the next 4 days. Return precaution discussed and understood.
[2021-01-19 15:32] LABS: BLOOD UREA NITROGEN,BUN 10 mg/dL (7.0-18.0); CARBON DIOXIDE,CO2 25.5 mmol/L (21.0-32.0); CHLORIDE,CL 104 mmol/L (98-107); GLUCOSE RANDOM 94 mg/dL (74-106); POTASSIUM,K 3.8 mmol/L (3.5-5.1); SODIUM,NA 139 mmol/L (136-148)
--- NOTE | 2021-01-19 15:39 | CR ---
Indication: Chest pain for 1 hour. Technique: PA and lateral views of the chest. Comparison: None Findings: The heart is normal in size. The lungs are clear. No infiltrate, pleural effusion, or pneumothorax is identified. Impression: No acute cardiopulmonary process Dictated by Armida Eng MD @ Jan 19 2021 3:38PM Signed by Dr. Armida Eng @ Jan 19 2021 3:38PM
[2021-01-19] MEDS ORDERED: Ketorolac 30 MG/ML SDV IVPUSH ONE (15:43)
== END 2021-01-19 16:16 | disposition home or self-care (01) ==
LOC: MW.ED 14:48
DX: S29.011A Strain of muscle and tendon of front wall of thorax, initial encounter (principal); Z72.0 Tobacco use; Z88.5 Allergy status to narcotic agent; X50.9XXA Other and unspecified overexertion or strenuous movements or postures, initial encounter; Y92.59 Other trade areas as the place of occurrence of the external cause
CPT/HCPCS: 71046; 80053; 84484; 85025; 93005; 96374; 99285; J1885; 93010; 99284

== ENCOUNTER 2021-01-27 15:39 | Emergency (ER) | payer BC ==
--- NOTE | 2021-01-27 15:47 | PCM.EKG ---
#1 Interpretation EKG Date: 01/27/21 Time: 15:43 Rhythm: NSR Rate (Beats/Min): 111 ST-T: Normal
[2021-01-27] MEDS ORDERED: Sodium Chloride 0.9% 10 ML Syringe FLUSH PRN (15:50)
[2021-01-27] MEDS ORDERED: Ketorolac 30 MG/ML SDV IVPUSH ONE (15:50)
[2021-01-27] MEDS ORDERED: Sodium Chloride 0.9% 2.5 ML Syringe FLUSH PRN (15:50)
[2021-01-27] MEDS ORDERED: Sodium Chloride 0.9% 1,000 ML IV ONE ×2 (15:50→17:04)
[2021-01-27] MEDS ORDERED: Aspirin 81 MG Tab.Chew PO ONE (15:50)
--- NOTE | 2021-01-27 16:20 | EDM.PDOC ---
ED HPI GENERAL MEDICAL PROBLEM - General Chief Complaint: Chest Pain Stated Complaint: CHEST PAIN Time Seen by Provider: 01/27/21 15:49 Source of Information: Reports: Patient History Limitations: Reports: No Limitations - History of Present Illness INITIAL COMMENTS - FREE TEXT/NARRATIVE: HISTORY AND PHYSICAL: History of present illness: Patient is a 40-year-old male who presents to the emergency room with complaints of left anterior chest pain that started approximately 45 minutes prior to arrival. He states the pain started while he was in a business meeting which he describes as a sharp stabbing pain. He was seen on 01/19/2021 for similar pain and was told it was a pectoralis muscle injury due to lifting some heavy furniture. He states today he was doing nothing in particular other than attending the meeting when the pain started. He states he has been under increased stress due to PTSD, "the month of January is always hard". States he was drinking alcohol during these meetings (few beers and 2-3 shots of hard alcohol). Patient denies any fever, chills, headache, change in vision, syncope or near syncope. Denies any back pain, shortness of breath or cough. Denies any abdominal pain, nausea, vomiting, diarrhea, constipation or dysuria. Has not noted any blood in urine or stool. Patient has been eating and drinking appropriately. Review of systems: As per history of present illness and below otherwise all systems reviewed and negative. Past medical history: As per history of present illness and as reviewed below otherwise noncontributory. Surgical history: As per history of present illness and as reviewed below otherwise noncontributory. Social history: See social history for further information Family history: As per history of present illness and as reviewed below otherwise noncontributory. Physical exam: General: Well developed and well nourished 40 year old male. Alert and orientated x 3. Nontoxic in appearance, anxious but in no acute distress. Vital signs are stable and have been reviewed by me. Nursing notes were reviewed. HEENT: Atraumatic, normocephalic, pupils equal and reactive bilaterally, negative for conjunctival pallor or scleral icterus, mucous membranes moist, TMs normal bilaterally, throat clear, neck supple, nontender, trachea midline. No drooling or trismus noted. No meningeal signs. No hot potato voice noted. Lungs: Clear to auscultation bilaterally. No wheezes, rales, or rhonchi. Chest nontender. Normal work of breathing, no accessory muscles used. Heart: S1S2, regular rate and rhythm without overt murmur, gallops, or rubs. No JVD. No peripheral edema Abdomen: Soft, nondistended, nontender. Normoactive bowel sounds. Negative for masses or costovertebral tenderness. Pelvis: Stable nontender. Genitourinary/Rectal: Deferred. Skin: Intact, warm, dry. No lesions or rashes noted. Hematologic: No petechiae or purpra. Mucosa appropriate color and normal nail bed color and refill. Extremities: Atraumatic, moves all extremities per self without difficulty or deficits, negative for cords or calf pain. Neurovascular unremarkable. Neuro: Awake, alert, oriented. Cranial nerves II through XII unremarkable. Cerebellum unremarkable. Motor and sensory unremarkable throughout. Exam nonfocal. Psychiatric: Mood and affect are appropriate. Normal thought process. Answering questions appropriately. Notes: *This patient was seen and evaluated during the 2019 SARS-CoV-2 novel coronavirus pandemic period. Community viral transmission is ongoing at time of this encounter and the emergency department is operating under pandemic response procedures. Upon arrival the patient is alert, oriented and answering questions appropriately although he is very animated and anxious appearing. Patient states he is having significant chest pain. He is demanding that his significant other be brought back to be at his bedside, which staff is agreeable to. Once the patient's significant other is at the bedside he states he does not recall where he is although he continues to be A&O x 3. NIH 0, GCS 15. He states he feels like his PTSD is causing his symptoms. He has this everyone once in awhile, but hasn't had "bad one in 5 years". He states he just had a Zoom Meeting this last Wednesday with his counselor for his PTSD, which went well. Chest pain has now resolved. Patient has an ETOH of 215, states he does drink most days if not everyday. Initial troponin is negative. Chest x-ray shows mild interstitial prominence without evidence of dense consolidation. Patient is refusing to keep the blood pressure cuff on as he states it makes him feel "anxious". He continues to try and tell me that all these symptoms are due to his PTSD. We will do a repeat troponin although his Heart Score is low. Patient is aware and agreeable. Patient has been in and out of his room multiple times requesting to be discharged home. I did tell him about the repeat troponin which she is agreeable to. Ultimately the patient signed out AGAINST MEDICAL ADVICE. He is aware of the risks of leaving before all diagnostics are completed. He is alert, oriented and answering questions appropriately. He is vitally stable, no acute distress. States he is chest pain-free. Diagnostics: CBC, CMP, UA, Drug Screen, ETOH, Troponin x 2, Head Therapeutics: IV fluids, ASA, Prescription: None Impression: Chest pain, nonspecific Alcohol intoxication Anxiety Left AGAINST MEDICAL ADVICE Plan: Patient left AGAINST MEDICAL ADVICE Definitive disposition and diagnosis as appropriate pending reevaluation and review of above. chest Pain Score (Numeric/FACES): 8 - Related Data Allergies Allergy/AdvReac Type Severity Reaction Status Date / Time hydrocodone [From Vicodin] Allergy Itching Verified 01/27/21 16:07 oxycodone [From Percocet] Allergy Rash Verified 01/27/21 16:07 Home Meds: Home Meds . [No Known Home Meds] 11/15/20 [History] Past Medical History - Past Health History Medical/Surgical History: Denies Medical/Surgical History HEENT History: Reports: Other (See Below) Other HEENT History: impaired hearing R ear Cardiovascular History: Reports: None Respiratory History: Reports: None Gastrointestinal History: Reports: Hiatal Hernia Genitourinary History: Reports: Renal Calculus Musculoskeletal History: Reports: Back Pain, Chronic, Fracture, Other (See Below) Other Musculoskeletal History: R leg, L ankle. R wrist, bilateral ribs Neurological History: Reports: Concussion Psychiatric History: Reports: PTSD Endocrine/Metabolic History: Reports: Obesity/BMI 30+ Hematologic History: Reports: None Immunologic History: Reports: None Oncologic (Cancer) History: Reports: None Dermatologic History: Reports: None - Infectious Disease History Infectious Disease History: Reports: Chicken Pox - Past Surgical History Head Surgeries/Procedures: Reports: None HEENT Surgical History: Reports: None Cardiovascular Surgical History: Reports: None Respiratory Surgical History: Reports: None GI Surgical History: Reports: Hernia, Abdominal, Christa Fundoplication Other GI Surgeries/Procedures: hx of umbilical hernia repair & hiatal hernia repair Male Surgical History: Reports: Vasectomy Endocrine Surgical History: Reports: None Neurological Surgical History: Reports: None Musculoskeletal Surgical History: Reports: None Oncologic Surgical History: Reports: None Dermatological Surgical History: Reports: Other (See Below) Social & Family History - Family History Family Medical History: No Pertinent Family History - Tobacco Use Packs/Tins Daily: 1.5 - Caffeine Use Caffeine Use: Reports: None - Recreational Drug Use Recreational Drug Use: No ED ROS GENERAL - Review of Systems Review Of Systems: Comprehensive ROS is negative, except as noted in HPI. ED EXAM, GENERAL - Physical Exam Exam: See Below (Left AGAINST MEDICAL ADVICE) Course - Vital Signs Last Recorded V/S: Last Vital Signs Temp 98.3 F 01/27/21 15:39 Pulse 105 H 01/27/21 18:07 Resp 16 01/27/21 18:07 BP 109/67 01/27/21 18:07 Pulse Ox 99 01/27/21 18:07 - Orders/Labs/Meds Orders: Active Orders 24 hr Category Date Time Status EKG Documentation Completion [RC] STAT Care 01/27/21 15:50 Active TROPONIN I [CHEM] Stat Lab 01/27/21 18:45 Ordered UA W/MICROSCOPIC [URIN] Stat Lab 01/27/21 17:41 Results Sodium Chloride 0.9% [Saline Flush] Med 01/27/21 15:50 Active 10 ml FLUSH ASDIRECTED PRN Sodium Chloride 0.9% [Saline Flush] Med 01/27/21 15:50 Active 2.5 ml FLUSH ASDIRECTED PRN Saline Lock Insert [OM.PC] Stat Oth 01/27/21 15:50 Ordered Medication Orders Sodium Chloride (Sodium Chloride 0.9% 10 Ml Syringe) 10 ml FLUSH ASDIRECTED PRN PRN Reason: Keep Vein Open Last Admin: 01/27/21 16:25 Dose: 10 ml Documented by: CAIT Sodium Chloride (Sodium Chloride 0.9% 2.5 Ml Syringe) 2.5 ml FLUSH ASDIRECTED PRN PRN Reason: Keep Vein Open Last Admin: 01/27/21 16:25 Dose: 2.5 ml Documented by: CAIT Labs: Laboratory Tests 01/27/21 01/27/21 01/27/21 Range/Units 15:48 15:48 15:48 WBC 9.46 (4.0-11.0) K/uL RBC 5.34 (4.50-5.90) M/uL Hgb 16.9 (13.0-17.0) g/dL Hct 50.7 H (38.0-50.0) % MCV 94.9 (80.0-98.0) fL MCH 31.6 (27.0-32.0) pg MCHC 33.3 (31.0-37.0) g/dL RDW Std Deviation 47.5 (28.0-62.0) fl RDW Coeff of Kalee 14 (11.0-15.0) % Plt Count 233 (150-400) K/uL MPV 11.60 (7.40-12.00) fL Neut % (Auto) 68.0 (48.0-80.0) % Lymph % (Auto) 23.2 (16.0-40.0) % [place] % (Auto) 8.2 (0.0-15.0) % Eos % (Auto) 0.5 (0.0-7.0) % Baso % (Auto) 0.1 (0.0-1.5) % Neut # (Auto) 6.4 H (1.4-5.7) K/uL Lymph # (Auto) 2.2 (0.6-2.4) K/uL [place] # (Auto) 0.8 (0.0-0.8) K/uL Eos # (Auto) 0.1 (0.0-0.7) K/uL Baso # (Auto) 0.0 (0.0-0.1) K/uL Nucleated RBC % 0.0 /100WBC Nucleated RBCs # 0 K/uL INR 1.06 D-Dimer, Quantitative (0.0-0.50) mg/L FEU Sodium 145 (136-148) mmol/L Potassium 3.9 (3.5-5.1) mmol/L Chloride 106 (98-107) mmol/L Carbon Dioxide 21.2 (21.0-32.0) mmol/L BUN 9 (7.0-18.0) mg/dL Creatinine 2.0 H (0.8-1.3) mg/dL Est Cr Clr Drug Dosing 56.04 mL/min Estimated GFR (MDRD) 37.4 ml/min Glucose 96 (74-106) mg/dL Calcium 7.9 L (8.5-10.1) mg/dL Total Bilirubin 0.5 (0.2-1.0) mg/dL AST 19 (15-37) IU/L ALT 39 (14-63) IU/L Alkaline Phosphatase 101 (46-116) U/L Troponin I < 0.050 (0.000-0.056) ng/mL Total Protein 7.2 (6.4-8.2) g/dL Albumin 3.6 (3.4-5.0) g/dL Globulin 3.6 (2.6-4.0) g/dL Albumin/Globulin Ratio 1.0 (0.9-1.6) Urine Color Urine Appearance Urine pH (5.0-8.0) Ur Specific [place] (1.001-1.035) Urine Protein (NEGATIVE) mg/dL Urine Glucose (UA) (NEGATIVE) mg/dL Urine Ketones (NEGATIVE) mg/dL Urine Occult Blood (NEGATIVE) Urine Nitrite (NEGATIVE) Urine Bilirubin (NEGATIVE) Urine Urobilinogen (<2.0) EU/dL Ur Leukocyte Esterase (NEGATIVE) Urine Opiates Screen (NEGATIVE) Ur Oxycodone Screen (NEGATIVE) Urine Methadone Screen (NEGATIVE) Ur Barbiturates Screen (NEGATIVE) Ur Phencyclidine Scrn (NEGATIVE) Ur Amphetamine Screen (NEGATIVE) U Methamphetamines Scrn (NEGATIVE) U Benzodiazepines Scrn (NEGATIVE) U Cocaine Metab Screen (NEGATIVE) U Marijuana (THC) Screen (NEGATIVE) Ethyl Alcohol mg/dL 01/27/21 01/27/21 01/27/21 Range/Units 15:48 15:48 17:41 WBC (4.0-11.0) K/uL RBC (4.50-5.90) M/uL Hgb (13.0-17.0) g/dL Hct (38.0-50.0) % MCV (80.0-98.0) fL MCH (27.0-32.0) pg MCHC (31.0-37.0) g/dL RDW Std Deviation (28.0-62.0) fl RDW Coeff of Kalee (11.0-15.0) % Plt Count (150-400) K/uL MPV (7.40-12.00) fL Neut % (Auto) (48.0-80.0) % Lymph % (Auto) (16.0-40.0) % [place] % (Auto) (0.0-15.0) % Eos % (Auto) (0.0-7.0) % Baso % (Auto) (0.0-1.5) % Neut # (Auto) (1.4-5.7) K/uL Lymph # (Auto) (0.6-2.4) K/uL [place] # (Auto) (0.0-0.8) K/uL Eos # (Auto) (0.0-0.7) K/uL Baso # (Auto) (0.0-0.1) K/uL Nucleated RBC % /100WBC Nucleated RBCs # K/uL INR D-Dimer, Quantitative 0.23 (0.0-0.50) mg/L FEU Sodium (136-148) mmol/L Potassium (3.5-5.1) mmol/L Chloride (98-107) mmol/L Carbon Dioxide (21.0-32.0) mmol/L BUN (7.0-18.0) mg/dL Creatinine (0.8-1.3) mg/dL Est Cr Clr Drug Dosing mL/min Estimated GFR (MDRD) ml/min Glucose (74-106) mg/dL Calcium (8.5-10.1) mg/dL Total Bilirubin (0.2-1.0) mg/dL AST (15-37) IU/L ALT (14-63) IU/L Alkaline Phosphatase (46-116) U/L Troponin I (0.000-0.056) ng/mL Total Protein (6.4-8.2) g/dL Albumin (3.4-5.0) g/dL Globulin (2.6-4.0) g/dL Albumin/Globulin Ratio (0.9-1.6) Urine Color YELLOW Urine Appearance HAZY Urine pH 6.0 (5.0-8.0) Ur Specific [place] 1.025 (1.001-1.035) Urine Protein NEGATIVE (NEGATIVE) mg/dL Urine Glucose (UA) NEGATIVE (NEGATIVE) mg/dL Urine Ketones TRACE H (NEGATIVE) mg/dL Urine Occult Blood MODERATE H (NEGATIVE) Urine Nitrite NEGATIVE (NEGATIVE) Urine Bilirubin NEGATIVE (NEGATIVE) Urine Urobilinogen 0.2 (<2.0) EU/dL Ur Leukocyte Esterase NEGATIVE (NEGATIVE) Urine Opiates Screen (NEGATIVE) Ur Oxycodone Screen (NEGATIVE) Urine Methadone Screen (NEGATIVE) Ur Barbiturates Screen (NEGATIVE) Ur Phencyclidine Scrn (NEGATIVE) Ur Amphetamine Screen (NEGATIVE) U Methamphetamines Scrn (NEGATIVE) U Benzodiazepines Scrn (NEGATIVE) U Cocaine Metab Screen (NEGATIVE) U Marijuana (THC) Screen (NEGATIVE) Ethyl Alcohol 215 mg/dL 01/27/21 Range/Units 17:41 WBC (4.0-11.0) K/uL RBC (4.50-5.90) M/uL Hgb (13.0-17.0) g/dL Hct (38.0-50.0) % MCV (80.0-98.0) fL MCH (27.0-32.0) pg MCHC (31.0-37.0) g/dL RDW Std Deviation (28.0-62.0) fl RDW Coeff of Kalee (11.0-15.0) % Plt Count (150-400) K/uL MPV (7.40-12.00) fL Neut % (Auto) (48.0-80.0) % Lymph % (Auto) (16.0-40.0) % [place] % (Auto) (0.0-15.0) % Eos % (Auto) (0.0-7.0) % Baso % (Auto) (0.0-1.5) % Neut # (Auto) (1.4-5.7) K/uL Lymph # (Auto) (0.6-2.4) K/uL [place] # (Auto) (0.0-0.8) K/uL Eos # (Auto) (0.0-0.7) K/uL Baso # (Auto) (0.0-0.1) K/uL Nucleated RBC % /100WBC Nucleated RBCs # K/uL INR D-Dimer, Quantitative (0.0-0.50) mg/L FEU Sodium (136-148) mmol/L Potassium (3.5-5.1) mmol/L Chloride (98-107) mmol/L Carbon Dioxide (21.0-32.0) mmol/L BUN (7.0-18.0) mg/dL Creatinine (0.8-1.3) mg/dL Est Cr Clr Drug Dosing mL/min Estimated GFR (MDRD) ml/min Glucose (74-106) mg/dL Calcium (8.5-10.1) mg/dL Total Bilirubin (0.2-1.0) mg/dL AST (15-37) IU/L ALT (14-63) IU/L Alkaline Phosphatase (46-116) U/L Troponin I (0.000-0.056) ng/mL Total Protein (6.4-8.2) g/dL Albumin (3.4-5.0) g/dL Globulin (2.6-4.0) g/dL Albumin/Globulin Ratio (0.9-1.6) Urine Color Urine Appearance Urine pH (5.0-8.0) Ur Specific [place] (1.001-1.035) Urine Protein (NEGATIVE) mg/dL Urine Glucose (UA) (NEGATIVE) mg/dL Urine Ketones (NEGATIVE) mg/dL Urine Occult Blood (NEGATIVE) Urine Nitrite (NEGATIVE) Urine Bilirubin (NEGATIVE) Urine Urobilinogen (<2.0) EU/dL Ur Leukocyte Esterase (NEGATIVE) Urine Opiates Screen NEGATIVE (NEGATIVE) Ur Oxycodone Screen NEGATIVE (NEGATIVE) Urine Methadone Screen NEGATIVE (NEGATIVE) Ur Barbiturates Screen NEGATIVE (NEGATIVE) Ur Phencyclidine Scrn NEGATIVE (NEGATIVE) Ur Amphetamine Screen NEGATIVE (NEGATIVE) U Methamphetamines Scrn NEGATIVE (NEGATIVE) U Benzodiazepines Scrn NEGATIVE (NEGATIVE) U Cocaine Metab Screen NEGATIVE (NEGATIVE) U Marijuana (THC) Screen NEGATIVE (NEGATIVE) Ethyl Alcohol mg/dL Meds: Medications Generic Name Dose Route Start Last Admin Trade Name Freq PRN Reason Stop Dose Admin Sodium Chloride 10 ml 01/27/21 15:50 01/27/21 16:25 Sodium Chloride 0.9% 10 Ml Syringe FLUSH 10 ml ASDIRECTED PRN Administration Keep Vein Open Sodium Chloride 2.5 ml 01/27/21 15:50 01/27/21 16:25 Sodium Chloride 0.9% 2.5 Ml Syringe FLUSH 2.5 ml ASDIRECTED PRN Administration Keep Vein Open Discontinued Medications Generic Name Dose Route Start Last Admin Trade Name Freq PRN Reason Stop Dose Admin Aspirin 324 mg 01/27/21 15:50 01/27/21 16:25 Aspirin 81 Mg Tab.Chew PO 01/27/21 15:51 324 mg ONETIME ONE Administration Sodium Chloride 1,000 mls @ 999 mls/hr 01/27/21 15:50 01/27/21 16:25 Normal Saline IV 01/27/21 16:50 999 mls/hr STAT ONE Administration Sodium Chloride 1,000 mls @ 999 mls/hr 01/27/21 17:04 01/27/21 17:20 Normal Saline IV 01/27/21 18:04 999 mls/hr STAT ONE Administration Ketorolac Tromethamine 30 mg 01/27/21 15:50 01/27/21 16:25 Ketorolac 30 Mg/Ml Sdv IVPUSH 01/27/21 15:51 30 mg ONETIME ONE Administration Departure - Departure Time of Disposition: 18:52 Disposition: Home, Self-Care 01 Clinical Impression: Nonspecific chest pain, Anxiety, Left against medical advice Acute alcohol intoxication Qualifiers: Complication of substance-induced condition: uncomplicated Qualified Code(s): F10.920 - Alcohol use, unspecified with intoxication, uncomplicated Referrals: PCP,None [Primary Care Provider] - Forms: ED Department Discharge Sepsis Event Note (ED) - Evaluation Sepsis Screening Result: No Definite Risk - Focused Exam Vital Signs: Vital Signs Temp Pulse Resp BP Pulse Ox 01/27/21 18:07 105 H 16 109/67 99 01/27/21 15:39 98.3 F 113 H 16 103/72 97 - My Orders Last 24 Hours: My Active Orders 01/27/21 15:50 EKG Documentation Completion [RC] STAT Sodium Chloride 0.9% [Saline Flush] 10 ml FLUSH ASDIRECTED PRN Sodium Chloride 0.9% [Saline Flush] 2.5 ml FLUSH ASDIRECTED PRN Saline Lock Insert [OM.PC] Stat 01/27/21 17:41 UA W/MICROSCOPIC [URIN] Stat 01/27/21 18:45 TROPONIN I [CHEM] Stat - Assessment/Plan Last 24 Hours: My Active Orders 01/27/21 15:50 EKG Documentation Completion [RC] STAT Sodium Chloride 0.9% [Saline Flush] 10 ml FLUSH ASDIRECTED PRN Sodium Chloride 0.9% [Saline Flush] 2.5 ml FLUSH ASDIRECTED PRN Saline Lock Insert [OM.PC] Stat 01/27/21 17:41 UA W/MICROSCOPIC [URIN] Stat 01/27/21 18:45 TROPONIN I [CHEM] Stat
[2021-01-27 16:26] LABS: BLOOD UREA NITROGEN,BUN 9 mg/dL (7.0-18.0); CARBON DIOXIDE,CO2 21.2 mmol/L (21.0-32.0); CHLORIDE,CL 106 mmol/L (98-107); GLUCOSE RANDOM 96 mg/dL (74-106); POTASSIUM,K 3.9 mmol/L (3.5-5.1); SODIUM,NA 145 mmol/L (136-148)
--- NOTE | 2021-01-27 17:09 | CR ---
Indication: Chest pain Comparison: None available. Technique: Single AP view chest Findings: There is hyperinflation and chronic interstitial change. There is no focal consolidation, effusion, or pneumothorax. The cardiomediastinal silhouette is within normal limits. The bony thorax is grossly intact. Impression: There is mild interstitial prominence without evidence of dense consolidation. Dictated by Robel Trinidad MD @ 01/27/2021 5:08:[address] Robel Trinidad @ Jan 27 2021 5:08PM
--- NOTE | 2021-01-27 17:22 | CT ---
INDICATION: Confusion TECHNIQUE: CT head without contrast. COMPARISON: None FINDINGS: CSF spaces: Within normal limits for age. Brain parenchyma: The stewart-white differentiation is normal. No sign of mass, hemorrhage, or midline shift. Skull base and calvarium: The visualized paranasal sinuses and mastoid air cells demonstrate no acute or significant findings. The visualized orbits are grossly unremarkable. No skull fractures. IMPRESSION: Unremarkable noncontrast head CT. Please note that all CT scans at this facility use dose modulation, iterative reconstruction, and/or weight-based dosing when appropriate to reduce radiation dose to as low as reasonably achievable. Dictated by Vu Chou MD @ 01/27/2021 5:20:[address] Vu Chou @ Jan 27 2021 5:20PM
== END 2021-01-27 18:47 | disposition home or self-care (01) ==
LOC: MW.ED 15:39
DX: F41.9 Anxiety disorder, unspecified (principal); F10.129 Alcohol abuse with intoxication, unspecified; Y90.7 Blood alcohol level of 200-239 mg/100 ml; E66.9 Obesity, unspecified; Z68.33 Body mass index [BMI] 33.0-33.9, adult; Z88.5 Allergy status to narcotic agent; Z72.0 Tobacco use
CPT/HCPCS: 36415; 70450; 71045; 80053; 80305; 80307; 81001; 84484; 85025; 85379; 85610; 93005; 96374; 99285; A9270; J1885; J7030; 99283